=== PATIENT | male | born 1975 | race Caucasian/White ===

== ENCOUNTER 2017-04-08 12:11 | Emergency (ER) | payer OTHER ==
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
[2017-04-08] MEDS ORDERED: NAPROXEN 500 MG TABLET (FP) PO ONE ×2 (12:32→13:00)
[2017-04-08 12:37] VITALS: BP 148/95; PULSE 82; TEMP 98.6; BMI 3905.5
[2017-04-08] MEDS ORDERED: NAPROXEN 500 MG TABLET (FP) ONE (12:38)
== END 2017-04-08 13:15 | disposition home or self-care (01) ==
LOC: FER 12:11
DX: Z04.1 Encounter for examination and observation following transport accident (principal); V43.52XA Car driver injured in collision with other type car in traffic accident, initial encounter; Y93.89 Activity, other specified; Y92.410 Unspecified street and highway as the place of occurrence of the external cause
CPT/HCPCS: 73070-TC-LT; 99282-25